=== PATIENT | male | born 1990 | race Caucasian/White ===

== ENCOUNTER 2025-02-25 13:02 | Observation (INO) ==
--- NOTE | 2025-02-25 13:17 | Emergency Department Note ---
Impression & Plan Dizziness, Nausea & vomiting ED Provider Note NAME: BLANCA ANDRADE AGE: 34 SEX: M : 1990 ARRIVES VIA: Ambulance INFORMANT: The patient himself. ED PROVIDER(S): Trena Londono PA-C, [Holden Ruano, DO] CHIEF COMPLAINT: Dizziness, chills, nausea/vomiting HISTORY OF PRESENTING ILLNESS: The patient is a 34-year-old male with a H anxiety and ADHD who presents to the emergency department via EMS due to acute onset nausea, vomiting, chills, and vertigo like dizziness that began 2 hours ago. He reports taking Zofran at home with minimal improvement. at bedside reports they are from [place] and visiting family. They were at [facility] a couple of days ago when he was riding [employer]. Nothing else out of the ordinary. Patient is sitting with his eyes closed and states he is not able to open them due to severe dizziness which causes him to throw up. He reports family members are sick but with upper respiratory symptoms. He denies fever, URI symptoms, chest pain, shortness of breath, abdominal pain, urinary symptoms, headache, neck pain, slurred speech, facial droop, unilateral weakness. This has never happened to him before. REVIEW OF SYSTEMS: See HPI for pertinent positives and pertinent negatives. ALLERGIES: NKDA MEDICATIONS: Sertraline, Vyvanse PAST MEDICAL HISTORY: Anxiety, ADHD PHYSICAL EXAM: VITALS: Vitals are noted on the nurses note and reviewed by myself. Vital signs stable. GENERAL: 34-year-old male, ill-appearing, lying in bed holding an emesis bag, in no acute distress, nondiaphoretic, well-developed well-nourished. SKIN: Capillary refill less than 2 seconds. No rash. HEENT: Normocephalic. PERRLA. EOMI. Horizontal nystagmus. Nares patent. Mucous membranes moist. Neck is supple without nuchal rigidity. TM visualized bilaterally without abnormality. Throat without tonsillar edema, tonsillar exudates, uvula is midline. HEART: Regular rate and rhythm without murmurs gallops or rubs. LUNGS: CTA BL without wheezes, rales or rhonchi. No retractions or accessory muscle use. ABDOMEN: Positive BS x 4. Soft, nontender, without masses or organomegaly. No guarding or rebound tenderness. MUSCULOSKELETAL: No gross musculoskeletal defects. FROM and strength upper and lower extremities. NEURO: Patient was alert and oriented to person place and time. No focal neurological deficits. DIFFERENTIAL DIAGNOSIS: Stroke, TIA, BPPV, labyrinthitis, vestibular neuritis, viral gastroenteritis, foodborne illness, viral infection, UTI, pyelonephritis, sepsis, dehydration, hypoglycemia, GERD, PUD, gallbladder disease, pancreatitis, migraine, electrolyte abnormality, among others. ED COURSE AND MEDICAL DECISION MAKING: MEDICATIONS GIVEN: 1 L normal saline, Tylenol 1000 mg IV, Ativan 0.5 mg IV, potassium chloride 10 PO and 2 units IV, 1 L normal saline, Ativan 0.5 mg IV, meclizine 25 mg PO, Decadron 10 mg IV MONITOR: Continuous millwork estimator: Order was placed for continuous millwork estimator. Patient was placed on the millwork estimator and continuous pulse ox. Patient was noted to be in normal sinus rhythm at an initial rate of 66 bpm per my interpretation. EKG: EKG was interpreted by myself as normal sinus rhythm. No obvious arrhythmia. No ST or T wave abnormality. Prolonged QT 492 ms. DC interval 114 ms. No previous EKG for comparison. INTERPRETATION OF LABS: I interpreted the labs with full lab results as below in the lab section of this note. Pertinent lab results discussed in the MDM section below. INTERPRETATION OF IMAGING: I informally interpreted the patient's chest x-ray which does not show evidence of obvious pneumothorax or consolidation and reviewed formal report below. ESCALATION OF CARE CONSIDERED: Escalation of care considered as the patient presents with new onset vertigo like dizziness, nausea, and vomiting. Symptoms do not improve here in the ER. Patient was admitted to medicine for further management. CONSULTATIONS: On-call hospitalist - Presented the patient to the provider with new onset nausea, vomiting, and vertigo like dizziness that began this morning. Patient's symptoms have not improved with treatment in the emergency department and workup shows elevated lactate 5.0 which has improved with fluids. They agreed to evaluate the patient and admitting him to medicine for further treatment. MDM SUMMARY: I evaluated the 34-year-old male who presents to the emergency department due to nausea, vomiting, chills, and dizziness that began this morning 2 hours ago. See HPI and PE above. Patient's vitals are stable. Initially 1 L normal saline, 0.5 mg Ativan, and Tylenol given for symptom management. Patient reports taking Zofran 4 mg PO at home before coming to the emergency department which has not improved his symptoms. EKG obtained initial rate 66 bpm normal sinus rhythm. Patient's QT is prolonged 492 ms. Will defer additional dose of Zofran or other antiemetics at this time. Labs obtained showing no leukocytosis. Hemodynamically stable. Hypokalemia 3.0. Potassium repleted 10 PO and 2 bags IV. Magnesium 1.8. No MARTA. Normal LFTs. Lactate elevated 5.0. 2 L fluids given. Troponin <2.3. Lipase 5. Procalcitonin <0.02. Chest x-ray obtained showing no acute findings. CT head is unremarkable. CTA head and neck unremarkable. BioFire negative. Urinalysis obtained 2+ ketones, no sign of UTI or hematuria. Additionally Ativan 0.5, meclizine, and Decadron given for symptom management. The patient was monitored for over 3 hours in the emergency department without improvement of symptoms. On exam he is still keeping his eyes closed due to dizziness and had an episode of emesis. Consultation with the on- call hospitalist can be seen in detail above. The patient is agreeable to admission for further treatment and all questions answered. The patient was admitted in stable condition. DIAGNOSIS: Dizziness, nausea and vomiting The chart was completed utilizing [employer] Speech voice recognition software. Grammatical errors, random word insertions, pronoun errors, and incomplete sentences are an occasional consequence of this system due to software limitations, ambient noise, and hardware issues. Any formal questions or concerns about the content, text, or information contained within the body of this dictation should be directly addressed to the provider for clarification. TREATMENT PLAN/DISCHARGE INSTRUCTIONS: The patient was admitted to medicine. See that note for further workup and management. Past Med/Surg History Problem List (Updated 02/25/25 @ 22:03 by Trena Londono PA-C) Nausea & vomiting (Acute) Dizziness (Acute) Dizziness Medical History Anxiety ADHD Surgical History History of facial surgery h/o facial fracture and repair, age 13 Family History Mother FH: blood disorder Pt thinks clotting disorder Social History Smoking Status: Former smoker Hx Alcohol Use: Yes (3-4 drinks once a week) Hx Substance Use: Yes Non-Prescribed Medications: Marijuana Preferred Language: Polish Feels Safe at Home: Yes Allergies Allergies Allergy/AdvReac Type Severity Reaction Status Date / Time No Known Allergies Allergy Verified 02/25/25 16:54 Home Meds Home Medications Medication Instructions Recorded Confirmed lisdexamfetamine 40 mg capsule 40 mg PO DAILY 02/25/25 02/25/25 sertraline 50 mg tablet 50 mg PO DAILY 02/25/25 02/25/25 Results & Data (ED) Vital Signs Vital Signs - 24 hr 02/25/25 13:14 02/25/25 13:35 02/25/25 13:36 Temperature 36.5 C Temperature Source Oral Pulse Rate 69 66 67 Pulse Rate from SpO2 Sensor 66 Respiratory Rate 16 16 Blood Pressure 140/71 Blood Pressure Mean 94 Pulse Oximetry 98 100 Oxygen Delivery Method Room Air Sepsis Recent Fever Within 48 Hours No Sepsis New/Unexplained Change in Mental Status N/A Sepsis Action Taken by Nursing No Action Required 02/25/25 13:42 02/25/25 13:51 02/25/25 14:00 Temperature Temperature Source Pulse Rate 76 63 63 Pulse Rate from SpO2 Sensor 72 63 63 Respiratory Rate 19 18 16 Blood Pressure Blood Pressure Mean Pulse Oximetry 100 100 100 Oxygen Delivery Method Sepsis Recent Fever Within 48 Hours Sepsis New/Unexplained Change in Mental Status Sepsis Action Taken by Nursing 02/25/25 14:00 02/25/25 14:00 02/25/25 14:00 Temperature Temperature Source Pulse Rate Pulse Rate from SpO2 Sensor Respiratory Rate Blood Pressure 136/82 136/82 136/82 Blood Pressure Mean 102 102 102 Pulse Oximetry Oxygen Delivery Method Sepsis Recent Fever Within 48 Hours Sepsis New/Unexplained Change in Mental Status Sepsis Action Taken by Nursing 02/25/25 14:00 02/25/25 14:00 02/25/25 14:12 Temperature Temperature Source Pulse Rate 62 Pulse Rate from SpO2 Sensor 62 Respiratory Rate 18 Blood Pressure 136/82 136/82 Blood Pressure Mean 102 102 Pulse Oximetry 100 Oxygen Delivery Method Sepsis Recent Fever Within 48 Hours Sepsis New/Unexplained Change in Mental Status Sepsis Action Taken by Nursing 02/25/25 14:21 02/25/25 14:30 02/25/25 14:42 Temperature Temperature Source Pulse Rate 61 46 L 49 L Pulse Rate from SpO2 Sensor 60 48 L 50 L Respiratory Rate 12 10 L 14 Blood Pressure Blood Pressure Mean Pulse Oximetry 100 99 100 Oxygen Delivery Method Sepsis Recent Fever Within 48 Hours Sepsis New/Unexplained Change in Mental Status Sepsis Action Taken by Nursing 02/25/25 14:51 02/25/25 15:00 02/25/25 15:00 Temperature Temperature Source Pulse Rate 53 L Pulse Rate from SpO2 Sensor 53 L Respiratory Rate 21 Blood Pressure 155/88 H 155/88 H Blood Pressure Mean 123 123 Pulse Oximetry 98 Oxygen Delivery Method Sepsis Recent Fever Within 48 Hours Sepsis New/Unexplained Change in Mental Status Sepsis Action Taken by Nursing 02/25/25 15:00 02/25/25 15:00 02/25/25 15:00 Temperature Temperature Source Pulse Rate Pulse Rate from SpO2 Sensor Respiratory Rate Blood Pressure 155/88 H 155/88 H 155/88 H Blood Pressure Mean 123 123 123 Pulse Oximetry Oxygen Delivery Method Sepsis Recent Fever Within 48 Hours Sepsis New/Unexplained Change in Mental Status Sepsis Action Taken by Nursing 02/25/25 15:00 02/25/25 15:12 02/25/25 15:21 Temperature Temperature Source Pulse Rate 83 57 L 56 L Pulse Rate from SpO2 Sensor 82 55 L 55 L Respiratory Rate 20 13 14 Blood Pressure Blood Pressure Mean Pulse Oximetry 100 94 97 Oxygen Delivery Method Sepsis Recent Fever Within 48 Hours Sepsis New/Unexplained Change in Mental Status Sepsis Action Taken by Nursing 02/25/25 15:31 02/25/25 15:31 02/25/25 15:31 Temperature Temperature Source Pulse Rate Pulse Rate from SpO2 Sensor Respiratory Rate Blood Pressure 125/75 125/75 125/75 Blood Pressure Mean 84 84 84 Pulse Oximetry Oxygen Delivery Method Sepsis Recent Fever Within 48 Hours Sepsis New/Unexplained Change in Mental Status Sepsis Action Taken by Nursing 02/25/25 15:31 02/25/25 15:31 02/25/25 15:33 Temperature Temperature Source Pulse Rate 83 Pulse Rate from SpO2 Sensor 82 Respiratory Rate 22 Blood Pressure 125/75 125/75 Blood Pressure Mean 84 84 Pulse Oximetry 100 Oxygen Delivery Method Sepsis Recent Fever Within 48 Hours Sepsis New/Unexplained Change in Mental Status Sepsis Action Taken by Nursing 02/25/25 15:42 02/25/25 15:51 02/25/25 16:00 Temperature Temperature Source Pulse Rate 68 58 L 68 Pulse Rate from SpO2 Sensor 67 56 L 68 Respiratory Rate 14 14 20 Blood Pressure Blood Pressure Mean Pulse Oximetry 96 99 95 Oxygen Delivery Method Sepsis Recent Fever Within 48 Hours Sepsis New/Unexplained Change in Mental Status Sepsis Action Taken by Nursing 02/25/25 16:00 02/25/25 16:00 02/25/25 16:00 Temperature Temperature Source Pulse Rate Pulse Rate from SpO2 Sensor Respiratory Rate Blood Pressure 122/67 122/67 122/67 Blood Pressure Mean 84 84 84 Pulse Oximetry Oxygen Delivery Method Sepsis Recent Fever Within 48 Hours Sepsis New/Unexplained Change in Mental Status Sepsis Action Taken by Nursing 02/25/25 16:00 02/25/25 16:00 02/25/25 16:00 Temperature Temperature Source Pulse Rate 68 Pulse Rate from SpO2 Sensor Respiratory Rate 20 Blood Pressure 122/67 122/67 122/67 Blood Pressure Mean 84 84 84 Pulse Oximetry Oxygen Delivery Method Sepsis Recent Fever Within 48 Hours Sepsis New/Unexplained Change in Mental Status Sepsis Action Taken by Nursing 02/25/25 16:00 02/25/25 16:00 02/25/25 16:21 Temperature Temperature Source Pulse Rate 78 Pulse Rate from SpO2 Sensor 75 Respiratory Rate 13 Blood Pressure 122/67 122/67 Blood Pressure Mean 84 84 Pulse Oximetry 100 Oxygen Delivery Method Sepsis Recent Fever Within 48 Hours Sepsis New/Unexplained Change in Mental Status Sepsis Action Taken by Nursing 02/25/25 16:30 02/25/25 16:30 02/25/25 16:30 Temperature Temperature Source Pulse Rate Pulse Rate from SpO2 Sensor Respiratory Rate Blood Pressure 126/83 126/83 126/83 Blood Pressure Mean 96 96 96 Pulse Oximetry Oxygen Delivery Method Sepsis Recent Fever Within 48 Hours Sepsis New/Unexplained Change in Mental Status Sepsis Action Taken by Nursing 02/25/25 16:30 02/25/25 16:30 02/25/25 16:30 Temperature Temperature Source Pulse Rate 55 L Pulse Rate from SpO2 Sensor 56 L Respiratory Rate 17 Blood Pressure 126/83 126/83 Blood Pressure Mean 96 96 Pulse Oximetry 94 Oxygen Delivery Method Sepsis Recent Fever Within 48 Hours Sepsis New/Unexplained Change in Mental Status Sepsis Action Taken by Nursing 02/25/25 16:42 02/25/25 16:51 02/25/25 17:00 Temperature Temperature Source Pulse Rate 62 74 87 Pulse Rate from SpO2 Sensor 61 72 84 Respiratory Rate 17 13 20 Blood Pressure Blood Pressure Mean Pulse Oximetry 92 96 98 Oxygen Delivery Method Sepsis Recent Fever Within 48 Hours Sepsis New/Unexplained Change in Mental Status Sepsis Action Taken by Nursing 02/25/25 17:00 02/25/25 17:00 02/25/25 17:00 Temperature Temperature Source Pulse Rate Pulse Rate from SpO2 Sensor Respiratory Rate Blood Pressure 138/85 138/85 138/85 Blood Pressure Mean 95 95 95 Pulse Oximetry Oxygen Delivery Method Sepsis Recent Fever Within 48 Hours Sepsis New/Unexplained Change in Mental Status Sepsis Action Taken by Nursing 02/25/25 17:00 02/25/25 17:00 02/25/25 17:12 Temperature Temperature Source Pulse Rate 76 Pulse Rate from SpO2 Sensor 75 Respiratory Rate 13 Blood Pressure 138/85 138/85 Blood Pressure Mean 95 95 Pulse Oximetry 96 Oxygen Delivery Method Sepsis Recent Fever Within 48 Hours Sepsis New/Unexplained Change in Mental Status Sepsis Action Taken by Nursing 02/25/25 17:21 02/25/25 17:30 02/25/25 17:30 Temperature Temperature Source Pulse Rate 58 L Pulse Rate from SpO2 Sensor 59 L Respiratory Rate 16 Blood Pressure 131/91 131/91 Blood Pressure Mean 114 114 Pulse Oximetry 98 Oxygen Delivery Method Sepsis Recent Fever Within 48 Hours Sepsis New/Unexplained Change in Mental Status Sepsis Action Taken by Nursing 02/25/25 17:30 02/25/25 17:30 02/25/25 17:30 Temperature Temperature Source Pulse Rate 63 Pulse Rate from SpO2 Sensor 61 Respiratory Rate 17 Blood Pressure 131/91 131/91 Blood Pressure Mean 114 114 Pulse Oximetry 99 Oxygen Delivery Method Sepsis Recent Fever Within 48 Hours Sepsis New/Unexplained Change in Mental Status Sepsis Action Taken by Nursing 02/25/25 17:30 02/25/25 17:30 02/25/25 17:42 Temperature Temperature Source Pulse Rate 64 Pulse Rate from SpO2 Sensor 65 Respiratory Rate 21 Blood Pressure 131/91 131/91 Blood Pressure Mean 114 114 Pulse Oximetry 94 Oxygen Delivery Method Sepsis Recent Fever Within 48 Hours Sepsis New/Unexplained Change in Mental Status Sepsis Action Taken by Nursing Laboratory Data 02/25/25 13:13 02/25/25 13:13 Lab Results 02/25/25 02/25/25 02/25/25 Range/Units 13:13 13:22 13:58 WBC 8.05 (4.8-10.8) K/ul RBC 4.96 (4.70-6.10) M/uL Hgb 14.6 (14.0-18.0) g/dL Hct 40.4 L (42.0-52.0) % MCV 81.5 (80.0-100.0) fL MCH 29.4 (25.0-34.0) pg MCHC 36.1 H (32.0-36.0) g/dL RDW Std Deviation 36.4 (36.4-46.3) fL RDW Coeff of Karina 12.4 (11.5-14.5) % Plt Count 383 (130-400) K/uL MPV 11.8 (9.4-12.4) fL Immature Gran % (Auto) 0.2 % Neut % (Auto) 56.6 % Lymph % (Auto) 31.6 % [place] % (Auto) 6.6 % Eos % (Auto) 4.3 % Baso % (Auto) 0.7 % Neut # (Auto) 4.55 (1.40-6.50) K/uL Lymph # (Auto) 2.54 (1.20-3.40) K/uL [place] # (Auto) 0.53 (0.11-0.59) K/uL Eos # (Auto) 0.35 (0.00-0.50) K/uL Baso # (Auto) 0.06 (0.00-0.20) K/uL Immature Gran # (Auto) 0.02 (0.01-0.20) K/uL Sodium 137 (136-145) mmol/L Potassium 3.0 L (3.5-5.1) mmol/L Chloride 105 (98-107) mmol/L Carbon Dioxide 16 L (21-32) mmol/L Anion Gap 16 H (3-11) BUN 12 (6-23) mg/dl Creatinine 0.89 (0.6-1.4) mg/dl Est Cr Clr Drug Dosing 128.4 ml/min eGFR 115.32 BUN/Creatinine Ratio 13.5 (10-20) Glucose 177 H (70-99(Fasting)) mg/dl Lactate 5.0 H* (0.4-2.0) mmol/L Calcium 9.4 (8.6-10.3) mg/dl Magnesium 1.8 (1.7-2.4) mg/dl Total Bilirubin 1.3 H (0.2-1.0) mg/dl AST 17 (13-39) U/L ALT 16 (7-52) U/L Alkaline Phosphatase 49 (34-104) U/L Troponin I High Sens < 2.3 (0-20) pg/ml Total Protein 7.6 (6.0-8.3) gm/dl Albumin 4.4 (3.4-5.0) gm/dl Globulin 3.2 (2.5-4.0) gm/dl Albumin/Globulin Ratio 1.4 (0.9-2) Lipase 5 L (11-82) U/L Procalcitonin < 0.02 (0-0.5) ng/ml Urine Color Yellow Urine Appearance Clear (Clear) Urine pH 8.5 H (4.5-7.5) Ur Specific [place] 1.014 (1.000-1.030) Urine Protein Negative (Negative) Urine Glucose (UA) Negative (Negative) Urine Ketones 2+ H (Negative) Urine Blood Negative (Negative) Urine Nitrite Negative (Negative) Urine Bilirubin Negative (Negative) Urine Urobilinogen Negative (Negative) Ur Leukocyte Esterase Negative (Negative) Urine Comment Adenovirus (PCR) Not Detected (NotDetected) B. pertussis DNA (PCR) Not Detected (NotDetected) B.parapertussis DNA PCR Not Detected (NotDetected) C. pneumoniae DNA (PCR) Not Detected (NotDetected) Coronavirus OC43 (PCR) Not Detected (NotDetected) Coronavirus HKU1 (PCR) Not Detected (NotDetected) Coronavirus 229E (PCR) Not Detected (NotDetected) SARS-CoV-2 (PCR) Not Detected (NotDetected) Coronavirus NL63 (PCR) Not Detected (NotDetected) Human Metapneumovir PCR Not Detected (NotDetected) Influenza Type A (PCR) Not Detected (NotDetected) Influenza Type B (PCR) Not Detected (NotDetected) M. pneumoniae (PCR) Not Detected (NotDetected) Parainfluenza 1 (PCR) Not Detected (NotDetected) Parainfluenza 2 (PCR) Not Detected (NotDetected) Parainfluenza 3 (PCR) Not Detected (NotDetected) Parainfluenza 4 (PCR) Not Detected (NotDetected) RSV (PCR) Not Detected (NotDetected) Entero/Rhino (PCR) Not Detected (NotDetected) Administered Medications Sodium Chloride (Nss) 1,000 mls @ 125 mls/hr IV .Q8H KEVIN Stop: 02/26/25 02:59 Last Admin: 02/25/25 18:53 Dose: 125 mls/hr Documented By: NICK Meclizine HCl (Meclizine Hcl 25 Mg Tab) 25 mg PO Q8H KEVIN Stop: 03/27/25 20:30 Last Admin: 02/25/25 21:22 Dose: 25 mg Documented By: MH Discontinued Medications Dexamethasone Sodium Phosphate (DexamethasonePf 10 Mg/Ml Vial) 10 mg IV NOW ONE Stop: 02/25/25 16:47 Last Admin: 02/25/25 16:56 Dose: 10 mg Documented By: erm Sodium Chloride (Nss) 1,000 mls @ 999 mls/hr IV .Q1H1M ONE Stop: 02/25/25 14:23 Last Infusion: 02/25/25 14:42 Dose: Infused Documented By: Admin: 02/25/25 13:34 Dose: 999 mls/hr Documented By: NICK Acetaminophen (Ofirmev) 1,000 mg in 100 mls @ 400 mls/hr IV NOW STA Stop: 02/25/25 13:37 Last Infusion: 02/25/25 14:42 Dose: Infused Documented By: Admin: 02/25/25 13:34 Dose: 400 mls/hr Documented By: NICK Potassium Chloride (K Vini / Wtr) 10 meq in 100 mls @ 100 mls/hr IV Q1H KEVIN Stop: 02/25/25 16:29 Last Infusion: 02/25/25 17:32 Dose: Infused Documented By: Infusion: 02/25/25 17:22 Dose: 0 mls/hr Documented By: Admin: 02/25/25 15:51 Dose: 100 mls/hr Documented By: Infusion: 02/25/25 15:36 Dose: Infused Documented By: Admin: 02/25/25 14:36 Dose: 100 mls/hr Documented By: NICK Sodium Chloride (Nss) 1,000 mls @ 999 mls/hr IV .Q1H1M ONE Stop: 02/25/25 15:28 Last Infusion: 02/25/25 17:22 Dose: Infused Documented By: Admin: 02/25/25 14:37 Dose: 999 mls/hr Documented By: NICK Ioversol (Optiray 320 125ml) 117 ml IV ONCE ONE Stop: 02/25/25 16:15 Last Admin: 02/25/25 16:16 Dose: 117 ml Documented By: Lorazepam (Lorazepam 1 Mg/1 Ml Syr Ed Inj Use) 0.5 mg IV ONE STA Stop: 02/25/25 13:29 Last Admin: 02/25/25 13:34 Dose: 0.5 mg Documented By: NICK Lorazepam (Lorazepam 1 Mg/1 Ml Syr Ed Inj Use) 0.5 mg IV ONE STA Stop: 02/25/25 14:47 Last Admin: 02/25/25 14:58 Dose: 0.5 mg Documented By: NICK Meclizine HCl (Meclizine Hcl 25 Mg Tab) 25 mg PO NOW STA Stop: 02/25/25 14:47 Last Admin: 02/25/25 14:58 Dose: 25 mg Documented By: NICK Ondansetron HCl (Ondansetron Inj 2 Mg/Ml 2 Ml Vial) 4 mg IV NOW STA Stop: 02/25/25 13:24 Last Admin: 02/25/25 13:38 Dose: Not Given Documented By: NICK Potassium Chloride (Potassium Chloride 10 Meq Tabcr) 10 meq PO NOW STA Stop: 02/25/25 14:29 Last Admin: 02/25/25 14:35 Dose: Not Given Documented By: NICK Potassium Chloride (Potassium Chloride Crtab 20 Meq Tabcr) 20 meq PO ONE ONE Stop: 02/25/25 20:32 Last Admin: 02/25/25 21:22 Dose: 20 meq Documented By: Imaging Data Radiologist's Impression: Chest X-Ray 02/25/25 13:26 XR chest 1V portable CLINICAL HISTORY: N/V, SOB COMPARISON STUDY: None FINDINGS: Heart size and pulmonary vasculature are normal. No consolidation or pleural effusion. No pneumothorax. IMPRESSION: No acute findings. ACT 112: Negative or not required by law. Electronically signed by: Ruddy Roberson M.D. 02/25/2025 1:[address] 02/25/25 14:46 CT SCAN OF THE BRAIN WITHOUT IV CONTRAST CLINICAL HISTORY: Vertigo. Nystagmus. COMPARISON STUDY: No priors. TECHNIQUE: Unenhanced CT scan of the brain is performed from the vertex to the skull base. Images are reviewed in the axial, sagittal, and coronal planes. A dose lowering technique was utilized adhering to the principles of ALARA. CT DOSE: 625.8 mGy.cm FINDINGS: Brain parenchyma: The brain parenchyma is normal in appearance. There is no hemorrhage, mass effect, or evidence of acute territorial ischemia by CT criteria. Bolanos-white matter differentiation is preserved. No extra-axial fluid collection is seen. Ventricles, sulci, cisterns: Normal in configuration. Intracranial vasculature: The visualized intracranial vasculature at the skull base is normal in appearance. Calvarium: Unremarkable. Sinuses and mastoids: There is mild mucosal thickening within the right frontal sinus and the anterior ethmoid sinuses. The mastoid air cells are well pneumatized. Orbits: The bony orbits are grossly intact. IMPRESSION: No acute intracranial abnormality. ACT 112: Negative or not required by law. Electronically signed by: Mihir Singh M.D. 02/25/2025 3:40 PM Head CTA 02/25/25 15:54 Clinical history: Vertigo Technique: Axial computed tomography images were obtained of the brain after the administration of intravenous contrast according to the CT angiogram protocol Findings: No definite stenosis or aneurysm is seen of the anterior, middle, or posterior cerebral artery circulations. The visualized vertebral arteries and the basilar artery appear unremarkable Impression: No definite stenosis or aneurysm of the intracranial arteries Electronically signed by Thierry Haley 02-25-2025 4:33 PM Neck CTA 02/25/25 15:54 Clinical history: Vertigo Technique: Axial computed tomography images were obtained of the neck after the administration of intravenous contrast according to the CT angiogram protocol Findings: No stenosis is seen of the common carotid arteries bilaterally. The carotid bulbs appear normal. There is tortuosity of the mid internal carotid arteries bilaterally. No stenosis of the external carotid arteries is seen The vertebral arteries are patent bilaterally with no significant stenosis seen. The visualized thoracic aorta appears unremarkable Impression: No definite stenosis of the neck arteries Electronically signed by Thierry Haley 02-25-2025 4:35 PM Discharge Plan Visit Data Chief Complaint: Illness Stated Complaint: Dizziness, Chills, N/V ED Provider: Holden Ruano ED Midlevel Provider: Trena Londono Discharge Problem: Dizziness, Nausea & vomiting Patient Disposition: Admitted As Inpatient Condition: Fair Discharge Instructions Interventions: ED Discharge Assessment Last Done: 02/25/25 20:03 Discharge Problem: Nausea & vomiting Qualifiers: Vomiting type: unspecified Qualified Code(s): R11.2 - Nausea with vomiting, unspecified
[2025-02-25] MEDS: ACETAMINOPHEN 1,000 MG/100 ML VIAL IV STA (13:34)
[2025-02-25] MEDS: SODIUM CHLORIDE 0.9% 1,000 ML IV ONE ×2 (13:34→14:37)
[2025-02-25] MEDS: LORazepam 1 MG/1 ML SYR ED Inj Use IV STA ×2 (13:34→14:58)
[2025-02-25] MEDS: ONDANSETRON INJ 2 MG/ML 2 ML VIAL IV STA (13:38)
[2025-02-25 13:39] LABS: Hematocrit (blood only) 40.4 % (42.0-52.0); Hemoglobin 14.6 g/dL (14.0-18.0); Immature Granulocytes # (auto) 0.02 K/uL (0.01-0.20); Immature Granulocytes % (auto) 0.2 %; Mean Corpuscular Hemoglobin 29.4 pg (25.0-34.0); Mean Corpuscular Volume 81.5 fL (80.0-100.0); Platelet Count 383 K/uL (130-400); RDW Standard Deviation 36.4 fL (36.4-46.3); Red Blood Count 4.96 M/uL (4.70-6.10); White Blood Count 8.05 K/ul (4.8-10.8)
--- NOTE | 2025-02-25 13:47 | XRay Report ---
XR chest 1V portable CLINICAL HISTORY: N/V, SOB COMPARISON STUDY: None FINDINGS: Heart size and pulmonary vasculature are normal. No consolidation or pleural effusion. No p neumothorax. IMPRESSION: No acute findings. ACT 112: Negative or not required by law. Electronically signed by: Ruddy Roberson M.D. 02/25/2025 1:46 PM
[2025-02-25 13:56] LABS: Alanine Aminotransferase 16 U/L (7-52); Albumin Globulin Ratio 1.4 (0.9-2); Albumin Level 4.4 gm/dl (3.4-5.0); Alkaline Phosphatase 49 U/L (34-104); Anion Gap 16 (3-11); Bilirubin,Total 1.3 mg/dl (0.2-1.0); Blood Urea Nitrogen 12 mg/dl (6-23); Calcium 9.4 mg/dl (8.6-10.3); Carbon Dioxide 16 mmol/L (21-32); Chloride 105 mmol/L (98-107); Creatinine Clr Calc Pharmacy 128.4 ml/min; Globulin 3.2 gm/dl (2.5-4.0); Glucose 177 mg/dl (70-99(Fasting)); Lipase 5 U/L (11-82); Potassium 3.0 mmol/L (3.5-5.1); Sodium 137 mmol/L (136-145); Total Protein 7.6 gm/dl (6.0-8.3)
[2025-02-25 14:26] LABS: Magnesium 1.8 mg/dl (1.7-2.4)
[2025-02-25] MEDS: POTASSIUM CHLORIDE 10 MEQ TABCR PO STA (14:34)
[2025-02-25] MEDS: POTASSIUM CHLORIDE / WTR 10 MEQ/100 ML PLCT IV SCH (14:36)
[2025-02-25 14:38] LABS: Chlamydia pneumoniae PCR Not Detected (NotDetected); Coronavirus 229E PCR Not Detected (NotDetected); Coronavirus CoV-2 (COVID19)PCR Not Detected (NotDetected); Coronavirus HKU1 PCR Not Detected (NotDetected); Coronavirus NL63 PCR Not Detected (NotDetected); Coronavirus OC43PCR Not Detected (NotDetected); Human Metapneumovirus PCR Not Detected (NotDetected); Parainfluenza Virus 1 PCR Not Detected (NotDetected); Parainfluenza Virus 2 PCR Not Detected (NotDetected); Parainfluenza Virus 3 PCR Not Detected (NotDetected); Parainfluenza Virus 4 PCR Not Detected (NotDetected); Respiratory Syncytial VirusPCR Not Detected (NotDetected); Rhinovirus/Enterovirus PCR Not Detected (NotDetected)
[2025-02-25 14:54] LABS: Appearance Urine Clear (Clear); Glucose Urine UA Negative (Negative)
[2025-02-25] MEDS: MECLIZINE HCL 25 MG TAB PO STA (14:58)
--- NOTE | 2025-02-25 15:41 | CT Scan Report ---
CT SCAN OF THE BRAIN WITHOUT IV CONTRAST CLINICAL HISTORY: Vertigo. Nystagmus. COMPARISON STUDY: No priors. TECHNIQUE: Unenhanced CT scan of the brain is performed from the vertex to the skull base. Images are reviewed in the axial, sagittal, and coronal planes. A dose lowering technique was utilized adherin g to the principles of ALARA. CT DOSE: 625.8 mGy.cm FINDINGS: Brain parenchyma: The brain parenchyma is normal in appearance. There is no hemorrhage, mass effect, or evidence of acute territorial ischemia by CT criteria. Bolanos-white matter differentiation is preser andrew. No extra-axial fluid collection is seen. Ventricles, sulci, cisterns: Normal in configuration. Intracranial vasculature: The visualized intracranial vasculature at the skull base is normal in appe arance. Calvarium: Unremarkable. Sinuses and mastoids: There is mild mucosal thickening within the right frontal sinus and the anterio r ethmoid sinuses. The mastoid air cells are well pneumatized. Orbits: The bony orbits are grossly intact. IMPRESSION: No acute intracranial abnormality. ACT 112: Negative or not required by law. Electronically signed by: Mihir Singh M.D. 02/25/2025 3:40 PM
[2025-02-25] MEDS: OPTIRAY 320 125ml IV ONE (16:16)
--- NOTE | 2025-02-25 16:34 | CT Scan Report ---
Clinical history: Vertigo Technique: Axial computed tomography images were obtained of the brain after the administration of intravenous contrast according to the CT angiogram protocol Findings: No definite stenosis or aneurysm is seen of the anterior, middle, or posterior cerebral artery circulations. The visualized vertebral arteries and the basilar artery appear unremarkable Impression: No definite stenosis or aneurysm of the intracranial arteries Electronically signed by Thierry Haley 02-25-2025 4:33 PM
--- NOTE | 2025-02-25 16:36 | CT Scan Report ---
Clinical history: Vertigo Technique: Axial computed tomography images were obtained of the neck after the administration of intravenous contrast according to the CT angiogram protocol Findings: No stenosis is seen of the common carotid arteries bilaterally. The carotid bulbs appear normal. There is tortuosity of the mid internal carotid arteries bilaterally. No stenosis of the external carotid arteries is seen The vertebral arteries are patent bilaterally with no significant stenosis seen. The visualized thoracic aorta appears unremarkable Impression: No definite stenosis of the neck arteries Electronically signed by Thierry Haley 02-25-2025 4:35 PM
[2025-02-25] MEDS: dexAMETHasone**PF** 10 MG/ML VIAL IV ONE (16:56)
--- NOTE | 2025-02-25 17:38 | History & Physical Report ---
Date of Service February 25, 2025 Assessment & Plan (1) Dizziness: Plan: Patient is 34 year old male with PMH anxiety, ADHD presented to ER with c/o dizziness and vomiting today after bending over. CT Head: No acute intracranial abnormality. Head CTA: No definite stenosis or aneurysm of the intracranial arteries Neck CTA: No definite stenosis of the neck arteries In ER given 2L NSS, Total 1mg Ativan IV, IV Tylenol, IV dexamethasone 10 mg, meclizine DDx: labyrinthitis, vestibular neuritis Continue meclizine IVF Fall precautions PT eval for Giovana maneuver MRI brain r/o stroke CBC, BMP in am #Elevated lactate No leukocytosis, lactate: 5.0--> 3.2. Negative procalcitonin. Negative respiratory Biofire panel UA not consistent with infection CXR: No acute findings. Blood cultures pending No other signs or symptoms of infection Trend lactate # Hypokalemia K: 3.0, magnesium: 1.8 In ER given 2K riders DVT Prophylaxis SCDs Admit med tele Full Code Follows with Dr Cary Flood in [place] for routine care Pt was seen and care coordinated with Dr Leon. See addendum I spent a total of 60 minutes reviewing notes, outpatient records, labs, medication, coordinating, documenting and providing care for this patient excluding time spent in the performance of separately billed services and excluding time spent by another provider/QHP. History of Present Illness Chief Complaint: vomiting, dizziness Primary Care Provider: CARY FLOOD Patient is 34 year old male with PMH anxiety, ADHD presented to ER with c/o dizziness and vomiting today. Patient reports this morning was doing laundry bent over when he had sudden onset of dizziness described as room spinning. States had difficulty walking when dizzy as felt off balance. He states dizziness continued and was nauseated and dry heaving. Anytime he attempted ambulation or opening his eyes dizziness worsened. He reports having sweats with dizziness and feeling chilled. Patient reports is from [place] and travelled in car several days ago. He does state couple days ago went to [facility] and had some dizziness after spinning ride but that resolved quickly. He also reports doing arcade games with flashing lights. Denies history vertigo or dizziness in past. Denies head injury. States couple days ago "felt off" but de nies rhinorrhea, cough, sore throat, SOB, CP. Denies known fever diarrhea, constipation, GUARDADO, syncope, vision changes, neck pain, CP, SOB, palpitations, abdominal pain, paresthesias, extremity weakness, extremity edema, rashes, urinary symptoms. Discussed with ER provider patient with ongoing dizziness even after treatment in ER. Per discussion with patient he reports some improvement and can now open eyes for a little but still gets dizziness and nauseated. Allergies Allergy/AdvReac Type Severity Reaction Status Date / Time No Known Allergies Allergy Verified 02/25/25 16:54 Home Medications Medication Instructions Recorded Confirmed Type lisdexamfetamine 40 mg capsule 40 mg PO DAILY 02/25/25 02/25/25 History sertraline 50 mg tablet 50 mg PO DAILY 02/25/25 02/25/25 History Past Med/Surg History Problem List (Updated 02/25/25 @ 18:44 by Casandra Wolfe PA-C) Dizziness Medical History (Updated 02/25/25 @ 18:44 by Casandra Wolfe PA-C) Anxiety ADHD Surgical History (Updated 02/25/25 @ 18:44 by Casandra Wolfe PA-C) History of facial surgery h/o facial fracture and repair, age 13 Family History (Updated 02/25/25 @ 18:45 by Casandra Wolfe PA-C) Mother FH: blood disorder Pt thinks clotting disorder Social History (Updated 02/25/25 @ 18:45 by Casandra Wolfe PA-C) Smoking Status: Former smoker Hx Alcohol Use: Yes (3-4 drinks once a week) Hx Substance Use: Yes Non-Prescribed Medications: Marijuana Preferred Language: Japanese Feels Safe at Home: Yes Review of Systems Review of Systems: All systems reviewed & are unremarkable except as noted in HPI & below Physical Exam Physical Exam: General: +lying supine in bed with lights off and eyes closed in position of comfort, WDWN Head: normocephalic, atraumatic Eyes: PERRL, EOM's intact, +lateral nystagmus, conjunctiva non-injected, anicteric ENT: normal inspection external ears, nose, mucous membranes moist Neck: supple, trachea midline Lungs: clear, no respiratory distress, no wheezing/rhonchi/rales CV: RRR, no murmur, no pretibial edema Abd: normal BS, soft, non-tender Ext: no cyanosis, no calf tenderness Neuro: A&O x 3, no other focal deficits noted, normal affect Skin: warm, dry Results & Data Results & Data Vital Signs (Past 12 Hours) Vital Signs Temp Pulse Resp BP Pulse Ox O2 Del Method 02/25/25 17:30 63 17 99 02/25/25 17:30 131/91 02/25/25 17:30 131/91 02/25/25 17:21 58 L 16 98 02/25/25 17:12 76 13 96 02/25/25 17:00 138/85 02/25/25 17:00 138/85 02/25/25 17:00 138/85 02/25/25 17:00 138/85 02/25/25 17:00 138/85 02/25/25 17:00 87 20 98 02/25/25 16:51 74 13 96 02/25/25 16:42 62 17 92 02/25/25 16:30 55 L 17 94 02/25/25 16:30 126/83 02/25/25 16:30 126/83 02/25/25 16:30 126/83 02/25/25 16:30 126/83 02/25/25 16:30 126/83 02/25/25 16:21 78 13 100 02/25/25 16:00 122/67 02/25/25 16:00 122/67 02/25/25 16:00 122/67 02/25/25 16:00 122/67 02/25/25 16:00 68 20 122/67 02/25/25 16:00 122/67 02/25/25 16:00 122/67 02/25/25 16:00 122/67 02/25/25 16:00 68 20 95 02/25/25 15:51 58 L 14 99 02/25/25 15:42 68 14 96 02/25/25 15:33 83 22 100 02/25/25 15:31 125/75 02/25/25 15:31 125/75 02/25/25 15:31 125/75 02/25/25 15:31 125/75 02/25/25 15:31 125/75 02/25/25 15:21 56 L 14 97 02/25/25 15:12 57 L 13 94 02/25/25 15:00 83 20 100 02/25/25 15:00 155/88 H 02/25/25 15:00 155/88 H 02/25/25 15:00 155/88 H 02/25/25 15:00 155/88 H 02/25/25 15:00 155/88 H 02/25/25 14:51 53 L 21 98 02/25/25 14:42 49 L 14 100 02/25/25 14:30 46 L 10 L 99 02/25/25 14:21 61 12 100 02/25/25 14:12 62 18 100 02/25/25 14:00 136/82 02/25/25 14:00 136/82 02/25/25 14:00 136/82 02/25/25 14:00 136/82 02/25/25 14:00 136/82 02/25/25 14:00 63 16 100 02/25/25 13:51 63 18 100 02/25/25 13:42 76 19 100 02/25/25 13:36 67 16 100 02/25/25 13:35 66 02/25/25 13:14 36.5 C 69 16 140/71 98 Room Air Laboratory Results Short CBC 02/25/25 Range/Units 13:13 WBC 8.05 (4.8-10.8) K/ul Hgb 14.6 (14.0-18.0) g/dL Hct 40.4 L (42.0-52.0) % Plt Count 383 (130-400) K/uL BMP 02/25/25 13:13 Sodium 137 Potassium 3.0 L Chloride 105 Carbon Dioxide 16 L BUN 12 Creatinine 0.89 Glucose 177 H Calcium 9.4 Liver Function 02/25/25 Range/Units 13:13 Total Bilirubin 1.3 H (0.2-1.0) mg/dl AST 17 (13-39) U/L ALT 16 (7-52) U/L Alkaline Phosphatase 49 (34-104) U/L Albumin 4.4 (3.4-5.0) gm/dl Urine 02/25/25 Range/Units 13:58 Urine Color Yellow Urine Appearance Clear (Clear) Urine pH 8.5 H (4.5-7.5) Ur Specific [place] 1.014 (1.000-1.030) Urine Protein Negative (Negative) Urine Glucose (UA) Negative (Negative) Diagnostic Findings Chest X-Ray 02/25/25 13:26 XR chest 1V portable CLINICAL HISTORY: N/V, SOB COMPARISON STUDY: None FINDINGS: Heart size and pulmonary vasculature are normal. No consolidation or pleural effusion. No pneumothorax. IMPRESSION: No acute findings. ACT 112: Negative or not required by law. Electronically signed by: Ruddy Roberson M.D. 02/25/2025 1:[address] 02/25/25 14:46 CT SCAN OF THE BRAIN WITHOUT IV CONTRAST CLINICAL HISTORY: Vertigo. Nystagmus. COMPARISON STUDY: No priors. TECHNIQUE: Unenhanced CT scan of the brain is performed from the vertex to the skull base. Images are reviewed in the axial, sagittal, and coronal planes. A dose lowering technique was utilized adhering to the principles of ALARA. CT DOSE: 625.8 mGy.cm FINDINGS: Brain parenchyma: The brain parenchyma is normal in appearance. There is no hemorrhage, mass effect, or evidence of acute territorial ischemia by CT criteria. Bolanos-white matter differentiation is preserved. No extra-axial fluid collection is seen. Ventricles, sulci, cisterns: Normal in configuration. Intracranial vasculature: The visualized intracranial vasculature at the skull base is normal in appearance. Calvarium: Unremarkable. Sinuses and mastoids: There is mild mucosal thickening within the right frontal sinus and the anterior ethmoid sinuses. The mastoid air cells are well pneumatized. Orbits: The bony orbits are grossly intact. IMPRESSION: No acute intracranial abnormality. ACT 112: Negative or not required by law. Electronically signed by: Mihir Singh M.D. 02/25/2025 3:40 PM Head CTA 02/25/25 15:54 Clinical history: Vertigo Technique: Axial computed tomography images were obtained of the brain after the administration of intravenous contrast according to the CT angiogram protocol Findings: No definite stenosis or aneurysm is seen of the anterior, middle, or posterior cerebral artery circulations. The visualized vertebral arteries and the basilar artery appear unremarkable Impression: No definite stenosis or aneurysm of the intracranial arteries Electronically signed by Thierry Haley 02-25-2025 4:33 PM Neck CTA 02/25/25 15:54 Clinical history: Vertigo Technique: Axial computed tomography images were obtained of the neck after the administration of intravenous contrast according to the CT angiogram protocol Findings: No stenosis is seen of the common carotid arteries bilaterally. The carotid bulbs appear normal. There is tortuosity of the mid internal carotid arteries bilaterally. No stenosis of the external carotid arteries is seen The vertebral arteries are patent bilaterally with no significant stenosis seen. The visualized thoracic aorta appears unremarkable Impression: No definite stenosis of the neck arteries Electronically signed by Thierry Haley 02-25-2025 4:35 PM ECG Additional Comments: sinus rhythm per my interpretation Supervising Physician Co-Signing Physician Notes Attending addendum: The patient was seen and examined in emergency room in presence of the She has been complaining of sudden onset dizziness with nausea and vomiting since this morning His dizziness gets worse with movement of the head and also opening the eyes and he has vomited so many times Denies any abdominal pain and denies any problem with urination or bowel habit Denies any neck stiffness or fever On examination Lying on left side quietly during my examination and has been feeling better Still has minimal dizziness with movement of the neck but nausea has been better Remains hemodynamically stable with bradycardia and afebrile Chest was clear to auscultate bilaterally HeartS1-S2, regular Abdomenbenign, nontender Extremitiesno edema CNSalert awake and oriented x 3. No photophobia and no neck stiffness and movement of the head causes dizziness His admission labs and imaging studies reviewed including CT of the head Ongoing nausea and vomiting with dizziness with movement of the head Likely has labyrinthitis and will treat symptomatically and also with Giovana maneuver Will get an MRI of the head just to rule out any vestibular disease Agree with assessment and plan as outlined above by Casandra Wolfe PA-C and take the full responsibility of care in the hospital Total time taken to see the patient, examining him and go over the chart and managing care was [address] Tracey Leon
[2025-02-25] MEDS: SODIUM CHLORIDE 0.9% 1,000 ML IV SCH (18:53)
--- NOTE | 2025-02-25 18:59 | Electrocardiogram Report ---
Test Reason : Blood Pressure : */* mmHG Vent. Rate : 66 BPM Atrial Rate : 66 BPM P-R Int : 114 ms QRS Dur : 102 ms QT Int : 470 ms P-R-T Axes : 63 89 79 degrees QTcB Int : 492 ms Normal sinus rhythm Prolonged QT Abnormal ECG No previous ECGs available Confirmed by Tahir Sánchez ([id number]) on 02/25/2025 6:59:14 PM Referred By: Confirmed By: Tahir Sánchez
[2025-02-25] MEDS ORDERED: POLYETHYLENE (MIRALAX) 17 GM PACK PO PRN (20:31)
[2025-02-25] MEDS ORDERED: ACETAMINOPHEN 325 MG TAB PO PRN (20:31)
[2025-02-25] MEDS: MECLIZINE HCL 25 MG TAB PO SCH (21:22)
[2025-02-25] MEDS: POTASSIUM CHLORIDE CRTAB 20 MEQ TABCR PO ONE (21:22)
[2025-02-26 07:03] LABS: Hematocrit (blood only) 42.4 % (42.0-52.0); Hemoglobin 14.6 g/dL (14.0-18.0); Mean Corpuscular Hemoglobin 28.9 pg (25.0-34.0); Mean Corpuscular Volume 84.0 fL (80.0-100.0); Platelet Count 330 K/uL (130-400); RDW Standard Deviation 38.5 fL (36.4-46.3); Red Blood Count 5.05 M/uL (4.70-6.10); White Blood Count 10.87 K/ul (4.8-10.8)
[2025-02-26 07:45] LABS: Anion Gap 10.0 (3-11); Blood Urea Nitrogen 9.0 mg/dl (6-23); Calcium 8.8 mg/dl (8.6-10.3); Carbon Dioxide 20.0 mmol/L (21-32); Chloride 108.0 mmol/L (98-107); Creatinine Clr Calc Pharmacy 165.6 ml/min; Glucose 123.0 mg/dl (70-99(Fasting)); Magnesium 1.8 mg/dl (1.7-2.4); Potassium 4.1 mmol/L (3.5-5.1); Sodium 138.0 mmol/L (136-145)
[2025-02-26] MEDS: SERTRALINE HCL 50 MG TABLET PO SCH (08:22)
[2025-02-26] MEDS: ONDANSETRON INJ 2 MG/ML 2 ML VIAL IV PRN (09:45)
[2025-02-26] MEDS: MECLIZINE HCL 25 MG TAB PO SCH (13:31)
--- NOTE | 2025-02-26 15:34 | Hospitalist Progress Note ---
Date of Service February 26, 2025 Assessment & Plan (1) Vestibular neuronitis: (2) Benign positional vertigo: (3) ADHD: (4) Anxiety: Plan Patient 34-year-old gentleman presents with symptoms highly consistent with a peripheral vertigo. Some of his history would be consistent with vestibular neuronitis, other parts of his history is consistent with BPV. Symptoms only slightly improved with scheduled meclizine, add scheduled Valium Reorder MRI of the brain to rule out some other etiology for his acute vertigo Encourage activity as tolerated Physical therapies ordered for Giovana maneuvers anticipate will be seen tomorrow at bedside updated plan of care as well. Admission and Anticipated Discharge Date Admission Date: February 25, 2025 Subjective Patient continues to have fairly significant vertigo with any positional change. Meclizine may have helped some. Unable to do MRI due to severe nausea yesterday. No other neurological complaints. is at bedside she did share that they are visiting from [place]. They did take the family to [facility] earlier this week. Patient was riding lots of the [place]. He seemed to tolerate all of that at that time without any ill effects. Vertigo came on quite rapidly yesterday. She did state that almost the entire rest the family's had upper respiratory infection symptoms, however the patient himself has not really been too symptomatic with any type of URI. Physical Exam Physical Exam: Constitutional: Alert, mild distress, keeps his eyes closed HEENT: Mucous membranes moist. Lungs: Clear to auscultation, decreased, no wheezes rales or rhonchi CV: S1-S2, regular Abdomen: Soft, nontender, nondistended Extremities: No significant edema Neuro: Vertiginous symptoms with movement Psych: Cooperative, normal mood Results & Data Results & Data Vital Signs (Past 12 Hours) Vital Signs Temp Pulse Pulse Resp BP Pulse Ox O2 Del Method 02/26/25 15:15 36.8 C 78 18 116/63 97 Room Air 02/26/25 11:14 36.8 C 82 18 127/70 98 Room Air 02/26/25 07:50 68 02/26/25 07:25 36.7 C 75 16 116/67 99 Room Air 02/26/25 03:43 36.9 C 67 18 123/79 99 Room Air Diagnostic Findings Reviewed imaging, laboratory and diagnostic studies. Pertinent findings as below. WBCs 10.8 Hemoglobin 14.6 Electrolytes stable
[2025-02-26] MEDS: GADOBUTROL 65ML VIAL IV ONE (18:49)
--- NOTE | 2025-02-26 19:17 | Magnetic Resonance Report ---
Clinical History: Vertigo and vomiting Technique: Multiple T1 and T2-weighted magnetic resonance images were obtained of the brain both before and after the administration of 8.6 cc of Gadavist intravenous gadolinium contrast Findings: There is no sign of acute or old infarction with normal-appearing diffusion weighted images. No definite focus of demyelination is seen. No mass lesion or other area of abnormal enhancement is identified. There is no intracranial hemorrhage or other fluid collection. No midline shift or other form of herniation is seen. There is no hydrocephalus. The pituitary gland appears normal. Normal flow-voids are seen within the arteries of the [id number]. The orbits and paranasal sinuses appear normal. The mastoid air cells appear clear Impression: Unremarkable MRI of the brain Electronically signed by Thierry Haley 02-26-2025 7:16 PM
[2025-02-27 04:04] VITALS: RESP 18; O2SAT 98
[2025-02-27 07:34] VITALS: BP 117/77; PULSE 54; TEMP 97.7
--- NOTE | 2025-02-27 10:48 | Discharge Summary ---
Discharge Summary Date of Service February 27, 2025 Principal Dx & Hospital Course #1 = Principal Diagnosis (1) Vestibular neuronitis: (2) ADHD: (3) Anxiety: (4) Lactic acid blood increased: Plan Patient 34-year-old gentleman presented to the emergency room with acute onset of severe vertigo. Initial imaging and workup in the emergency room was unremarkable. Patient was admitted to the hospital due to his severe symptomato logy. Patient was started on meclizine with some improvement in his symptoms. Valium was added for his persistent vertigo and had significant response to this intervention. Patient was able to undergo MRI. Did not show any acute abnormalities. Patient was evaluated by physical therapy for Giovana maneuvers. Patient had minimal response since deemed to be more likely a vestibular neuronitis than BPPV. With his improvement symptoms patient was able to get up and move around to care for himself. No further interventions required here in the hospital. He be discharged home to follow-up with his outpatient provider. is at bedside at the time of discharge. Reviewed driving instructions. Patient should not drive if taking the Valium or still having vertiginous symptoms. states that she will be driving home. Knows to follow-up with PCP when they get back home. Notes For Next Care Provider May need to consider ENT referral or dizziness clinic Medication Changes From Visit Meclizine, Valium for vertigo Zofran for nausea Admission HPI Per Admitting Provider Patient is 34 year old male with PMH anxiety, ADHD presented to ER with c/o dizziness and vomiting today. Patient reports this morning was doing laundry bent over when he had sudden onset of dizziness described as room spinning. States had difficulty walking when dizzy as felt off balance. He states dizziness continued and was nauseated and dry heaving. Anytime he attempted ambulation or opening his eyes dizziness worsened. He reports having sweats with dizziness and feeling chilled. Patient reports is from [place] and travelled in car several days ago. He does state couple days ago went to [place] and had some dizziness after spinning ride but that resolved quickly. He also reports doing arcade games with flashing lights. Denies history vertigo or dizziness in past. Denies head injury. States couple days ago "felt off" but denies rhinorrhea, cough, sore throat, SOB, CP. Denies known fever diarrhea, constipation, GUARDADO, syncope, vision changes, neck pain, CP, SOB, palpitations, abdominal pain, paresthesias, extremity weakness, extremity edema, rashes, urinary symptoms. Discussed with ER provider patient with ongoing dizziness even after treatment in ER. Per discussion with patient he reports some improvement and can now open eyes for a little but still gets dizziness and nauseated. Admission Exam Per Admitting Provider See H&P Discharge Exam Constitutional: Alert, a little sleepy from medications but answers questions appropriately HEENT: Mucous membranes moist. Lungs: No respiratory distress CV: Regular Neuro: No focal deficits Psych: Cooperative, normal mood Updated Medication List Medication Instructions Recorded Confirmed Type lisdexamfetamine 40 mg capsule 40 mg PO DAILY 02/25/25 02/25/25 History sertraline 50 mg tablet 50 mg PO DAILY 02/25/25 02/25/25 History diazepam 2 mg tablet 2 mg PO TID 14 days #42 tabs 02/27/25 Rx meclizine 25 mg tablet 25 mg PO TID 14 days #42 tabs 02/27/25 Rx ondansetron HCl 4 mg tablet 4 mg PO Q6H PRN nausea and 02/27/25 Rx vomiting #20 tabs Hospital Stay Data Consultations 02/25/25 17:24 ED Decision to Admit Stat Diagnostic Imagining Performed 02/25/25 14:46 CT head/brain wo con Stat 02/25/25 15:54 CTA head w con [CT angio head w con] Stat CTA neck with con [CT angio neck with con] Stat 02/26/25 10:57 MRI Brain [MR brain wo/w con] Routine Reviewed imaging, laboratory and diagnostic studies. Pertinent findings as below. MRI of the brain was read as unremarkable no sign of acute or subacute infarction, no masses, no hydrocephalus. WBCs 10.8 Hemoglobin 14.6 Platelets of 330 Electrolytes stable Creatinine 0.69 Lactate initially 5.0 improved to 3.2 with hydration respiratory viral panel negative Urinalysis negative Procalcitonin less than 0.02 Troponins negative Pending Results Patient Have Any Pending Studies at Discharge: No Discharge Instructions Given to Patient (Per Discharging Provider) Follow-up with your PCP when you get home. They may refer you to ENT or a dizziness clinic. You may slowly taper off the Valium and meclizine. Recommend starting to taper the Valium first. It may take 4-6 weeks to see complete improvement/resolution Total Time Total Time Spent Total Time Spent (In Minutes): 32
== END 2025-02-27 11:26 | disposition home or self-care (01) ==
LOC: ED 13:02 → 2W 13:02 → SUATTDRO 17:47 → 2W 20:03